=== PATIENT | male | born 1955 | race African-American/Black ===

== ENCOUNTER 2018-10-01 04:09 | Inpatient (IN) | payer OTHER ==
[2018-10-01] MEDS ORDERED: LORAZEPAM 2 MG INJ (04:31)
[2018-10-01] MEDS: LORAZEPAM 2 MG INJ IV (04:34)
[2018-10-01] MEDS: SOD CHLORIDE 0.9% 1,000 ML IV (04:35)
[2018-10-01 04:52] LABS: ADD MAN DIFF? NO
[2018-10-01 04:53] LABS: WHITE BLOOD COUNT 4.4 10^3/ul (4.8-10.8)
[2018-10-01 04:53] LABS: BASOPHILS % 0.9 % (0.0-2.0); EOSINOPHILS # 0.1 10^3/ul (0.0-0.5); EOSINOPHILS % 1.8 % (0.0-7.0); HEMATOCRIT 42.8 % (42.0-52.0); LYMPHOCYTES # 0.9 10^3/ul (0.8-2.9); LYMPHOCYTES % 20.5 % (15.0-51.0); MEAN CORPUSCULAR HEMOGLOBIN 25.9 pg (29.0-33.0); MEAN CORPUSCULAR HGB CONC 32.7 g/dl (32.0-37.0); MEAN CORPUSCULAR VOLUME 79.1 fl (82.0-101.0); MEAN PLATELET VOLUME 8.7 fl (7.4-10.4); MONOCYTE # 0.6 10^3/ul (0.3-0.9); MONOCYTES % 14.4 % (0.0-11.0); NEUTROPHIL # 2.7 10^3/ul (1.6-7.5); NEUTROPHILS % 61.9 % (39.0-77.0); PLATELET COUNT 299 10^3/UL (140-415); RED BLOOD COUNT 5.41 10^6/ul (4.70-6.10); RED CELL DISTRIBUTION WIDTH 14.2 % (11.5-14.5)
[2018-10-01] MEDS: LEVETIRACETAM 1000 MG (PMX) 100 ML IVPB (04:54)
[2018-10-01 05:13] LABS: ALANINE AMINOTRANSFERASE 27 IU/L (13-69); ALBUMIN 4.6 g/dl (3.3-4.9); ALBUMIN/GLOBULIN RATIO 1.31; ALKALINE PHOSPHATASE 150 IU/L (42-121); ANION GAP 18 (5-13); ASPARTATE AMINO TRANSFERASE 57 IU/L (15-46); BILIRUBIN,INDIRECT 1.3 mg/dl (0-1.1); BILIRUBIN,TOTAL 1.3 mg/dl (0.2-1.3); BLOOD UREA NITROGEN 10 mg/dl (7-20); CALCIUM 9.6 mg/dl (8.4-10.2); CARBON DIOXIDE 21 mmol/L (21-31); CHLORIDE 89 mmol/L (97-110); CREATININE 1.05 mg/dl (0.61-1.24); Estimated GFR > 60 mL/min (>60); GLUCOSE 146 mg/dl (70-220); POTASSIUM 4.2 mmol/L (3.5-5.1); SODIUM 128 mmol/L (135-144); TOTAL PROTEIN 8.1 g/dl (6.1-8.1)
[2018-10-01 05:24] LABS: TROPONIN-I < 0.012 ng/ml (0.000-0.120)
[2018-10-01] MEDS: DOCUSATE SODIUM 100 MG CAP PO (11:30)
[2018-10-01] MEDS ORDERED: ZOLPIDEM 5 MG TAB PO (11:30)
[2018-10-01] MEDS ORDERED: ONDANSETRON 4 MG INJ IV (11:30)
[2018-10-01] MEDS ORDERED: LORAZEPAM 2 MG INJ IV (11:30)
[2018-10-01] MEDS ORDERED: ACETAMINOPHEN 325 MG TAB PO (11:30)
[2018-10-01] MEDS ORDERED: hydrALAzine 20 MG INJ IV (11:30)
[2018-10-01] MEDS: LISINOPRIL 10 MG TAB PO (11:59)
[2018-10-01] MEDS: METOPROLOL (XL) 50 MG TAB PO (12:00)
[2018-10-01 12:33] LABS: PHOSPHORUS 4.6 mg/dl (2.5-4.9)
[2018-10-01 12:33] LABS: MAGNESIUM 1.9 mg/dl (1.7-2.5)
[2018-10-01] MEDS ORDERED: LEVETIRACETAM IV 750 MG in DEXTROSE 5% 100 ML IVPB (21:00)
[2018-10-01] MEDS ORDERED: FAMOTIDINE 20 MG INJ IV (21:00)
[2018-10-02] MEDS ORDERED: METOPROLOL (XL) 50 MG TAB PO (09:00)
[2018-10-02] MEDS ORDERED: LISINOPRIL 10 MG TAB PO (09:00)
== END 2018-10-01 13:23 | disposition left against medical advice (07) | DRG 101 ==
LOC: E/R 04:09 → TEL 05:32
DX: G40.909 Epilepsy, unspecified, not intractable, without status epilepticus (principal); E87.1 Hypo-osmolality and hyponatremia; F17.210 Nicotine dependence, cigarettes, uncomplicated; F12.90 Cannabis use, unspecified, uncomplicated; I10 Essential (primary) hypertension; G93.89 Other specified disorders of brain; Z91.19 Patient's noncompliance with other medical treatment and regimen; Z53.21 Procedure and treatment not carried out due to patient leaving prior to being seen by health care provider
CPT/HCPCS: 70450; 71045; 80053; 82962; 83735; 84100; 84484; 85025; 93005